=== PATIENT | male | born 2005 | race Caucasian/White ===

== ENCOUNTER 2024-01-18 23:28 | Emergency (ER) | payer OTHER, SELFPAY ==
--- NOTE | ~2024-01-18 | XR_ITS ---
EXAMINATION: XR CHEST CLINICAL INFORMATION: Inhalation injury. COMPARISON: None available. TECHNIQUE: Frontal view of the chest was obtained. FINDINGS: No significant abnormality is noted involving the heart, lungs, mediastinum, bony thorax or soft tissues. XR/XR chest 1V IMPRESSION: Unremarkable examination. Electronically signed by: Kd Latham MD 01/19/2024 12:40 AM EDT
[2024-01-18 23:38] VITALS: BP 113/58; PULSE 73; O2SAT 99; BMI 22.9
[2024-01-18 23:40] VITALS: BP 120/63; PULSE 75; RESP 18; TEMP 36.6; O2SAT 98
[2024-01-19] MEDS: Albuterol Sulfate 90 MCG 8 GM INHALER 2 PUFF INHALE (00:08)
--- NOTE | 2024-01-19 00:44 | ED_ITS ---
HPI - Burn/Smoke Inhalation General Chief complaint: Burn/Smoke Inhalation Stated complaint: lighheaded dizzy from Aluminium oxide Source: patient Mode of arrival: EMS Limitations: no limitations History of Present Illness HPI Narrative: Patient apparently was working accidentally inhaled brown fused elbow him oxide powder upon mixing with water immediately went outside for the fresh air feeling chest tight no wheezing saturating 99% at room air patient does have history of asthma during childhood Related Data Previous Rx's ?Medication ?Instructions ?Recorded albuterol sulfate 90 mcg/actuation 2 puff inhalation Q6H PRN 01/19/24 aerosol inhaler shortness of breath or wheezing #8.5 grams Allergies Allergy/AdvReac Type Severity Reaction Status Date / Time amoxicillin Allergy Intermediate Rash Verified 01/18/24 23:42 Review of Systems Review of Systems: Yes all other systems are reviewed and are negative [facility], [facility] Social History Social History Smoked in Last 30 Days: No Advance Directives: No Advance Directives Information Provided: No Physical Exam Vital Signs: Vital Signs: Last Vital Signs Temp 98.1 F 01/19/24 01:09 Pulse 73 01/19/24 01:09 Resp 18 01/19/24 01:09 BP 119/60 01/19/24 01:09 Pulse Ox 99 01/19/24 01:09 O2 Del Method Room Air 01/19/24 01:09 BMI result Body Mass Index 22.9 Appearance: Alert. Oriented X3. No acute distress. ENT: Pharynx normal. Oral Mucosa moist Neck: Normal inspection. Neck supple. CVS: Normal heart rate and rhythm. Pulses normal. Respiratory: No respiratory distress. Equal air entry bilateral, no wheezing/rales/rhonchi Skin: Skin warm and dry. Normal skin color. Normal skin turgor. Extremities: No lower extremity edema. Neuro: Oriented X 3. Medications Administered Discontinued Medications Generic Name Dose Route Start Last Admin Trade Name Freq PRN Reason Stop Dose Admin Albuterol Sulfate 2 puff 01/18/24 23:45 01/19/24 00:08 Albuterol Sulfate 90 Mcg 8 Gm Inhaler INHALE 01/18/24 23:46 2 puff ONCE ONE Administration Medical Decision Making Medical Decision Making [facility] Narrative: Patient with mild chemical pneumonitis lungs are clear chest x-ray negative saturating 99% will give him albuterol inhaler for wheezing if any from chemical pneumonitis Discharge Plan Discharge Clinical Impression: Exposure to chemical inhalation Patient Disposition: Home, Self-Care Instructions: Body Substance Exposure (ED) Additional Instructions: Use albumin inhaler 2 puffs every 4 -6 hours as needed Likely have mild chemical injury to your lungs from which should get full recovery Prescriptions: New albuterol sulfate 90 mcg/actuation HFA aerosol inhaler 2 puff inhalation Q6H PRN (Reason: shortness of breath or wheezing) Qty: 8.5 0RF Stand Alone Forms: Work/School Release Interventions: ED Discharge Assessment Last Done: 01/19/24 01:09 Discharge Date/Time: 01/19/24 01:11 Print Language: German
[2024-01-19 01:09] VITALS: BP 119/60; PULSE 73; RESP 18; TEMP 36.7; O2SAT 99
== END 2024-01-19 01:11 | disposition home or self-care (01) ==
PROVIDERS: Emergency Provider Internal Medicine
DX: R42 Dizziness and giddiness (principal); T59.891A Toxic effect of other specified gases, fumes and vapors, accidental (unintentional), initial encounter; R06.02 Shortness of breath; Y92.89 Other specified places as the place of occurrence of the external cause
CPT/HCPCS: 71045; 99284